=== PATIENT | female | born 1975 | race Hispanic/Latino ===

== ENCOUNTER 2017-03-14 22:01 | Inpatient (IN) | payer MEDICAID, OTHER ==
--- NOTE | 2017-03-14 22:10 | ED PDOC ---
Arrival/HPI - General Time Seen by Provider: 03/14/17 22:02 Historian: Patient - History of Present Illness Narrative History of Present Illness (Text): 03/14/17 22:09 Dede Naqvi is a 41 year old female smoker who presents to the Emergency department brought in by EMS status post witnessed seizure. Patient does not recall the incident and states she does not have a history of seizures prior to arrival. Patient denies any tongue biting or urinary incontinence. Patient denies any fever, chills, chest pain, shortness of breath, nausea, vomiting, diarrhea, urinary symptoms, back pain, neck pain, headache, dizziness, or any other complaints. Time/Duration: Prior to Arrival Symptom Onset: Sudden Symptom Course: Improving Activities at Onset: Rest, Light Context: Home Past Medical History - Provider Review Nursing Documentation Reviewed: Yes - Psychiatric Hx Depression: No Hx Emotional Abuse: No Hx Physical Abuse: No Hx Substance Use: No - Suicidal Assessment Feels Threatened In Home Enviroment: No Family/Social History - Physician Review Nursing Documentation Reviewed: Yes Family/Social History: No Known Family HX Hx Alcohol Use: Yes Hx Substance Use: No Hx Substance Use Treatment: No Allergies/Home Meds Allergies/Adverse Reactions: Allergies No Known Allergies Allergy (Verified 01/03/13 12:30) Review of Systems - Physician Review All systems were reviewed & negative as marked: Yes - Review of Systems Constitutional: Normal. absent: Fevers Eyes: Normal ENT: Normal Respiratory: Normal. absent: SOB, Cough Cardiovascular: Normal. absent: Chest Pain Gastrointestinal: Normal. absent: Abdominal Pain, Diarrhea, Nausea, Vomiting Genitourinary Female: Normal. absent: Dysuria, Frequency, Hematuria, Urine Output Changes Musculoskeletal: Normal. absent: Back Pain, Neck Pain Skin: Normal. absent: Rash Neurological: Seizure. absent: Headache, Dizziness Endocrine: Normal Hemo/Lymphatic: Normal Psychiatric: Normal Physical Exam Vital Signs Reviewed: Yes Vital Signs Temp Pulse Resp BP Pulse Ox 03/15/17 03:51 91 H 17 118/75 98 03/15/17 00:07 98 H 17 119/75 98 03/14/17 22:13 97.8 F 113 H 18 144/84 99 Temperature: Afebrile Blood Pressure: Normal Pulse: Regular Respiratory Rate: Normal Appearance: Positive for: Well-Appearing, Non-Toxic, Comfortable Pain Distress: None Mental Status: Positive for: Alert and Oriented X 3 - Systems Exam Head: Present: Atraumatic, Normocephalic, Ecchymosis (Ecchymosis under left eye) Pupils: Present: PERRL Extroacular Muscles: Present: EOMI Conjunctiva: Present: Normal Mouth: Present: Moist Mucous Membranes Neck: Present: Normal Range of Motion. No: Meningeal Signs, MIDLINE TENDERNESS , Paraspinal Tenderness Respiratory/Chest: Present: Clear to Auscultation, Good Air Exchange. No: Respiratory Distress, Accessory Muscle Use Cardiovascular: Present: Regular Rate and Rhythm, Normal S1, S2. No: Murmurs Abdomen: Present: Normal Bowel Sounds. No: Tenderness, Distention, Peritoneal Signs Back: Present: Normal Inspection. No: CVA Tenderness, Midline Tenderness, Paraspinal Tenderness Upper Extremity: Present: Normal Inspection. No: Cyanosis, Edema Lower Extremity: Present: Normal Inspection. No: Edema Neurological: Present: GCS=15, CN II-XII Intact, Speech Normal, Motor Func Grossly Intact, Normal Sensory Function, Normal Cerebellar Funct Skin: Present: Warm, Dry, Normal Color. 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 Plan: -- CT Head w/o contrast -- EKG -- Labs, cardiac enzymes, ammonia, alcogol level -- Urinalysis, urine drug screen -- Reassess and disposition Progress Notes: Reviewed EKG, sinus tachycardia at 104 bpm[address] Non-specific ST/T wave changes. 03/15/17 03:23 Reviewed radiology, CT Head shows: Brain: Mild atrophy. No intracranial hemorrhage. No mass. No definite edema. Ventricles: No hydrocephalus. Bones/joints: No acute fracture. Soft tissues: Unremarkable. Sinuses: No acute sinusitis. Mastoid air cells: No mastoid effusion. Orbits: Unremarkable as visualized. IMPRESSION: 1. No acute intracranial abnormality. 2. Incidental/non-acute findings are described above 03/15/17 03:36 On further questioning, pt states she recently stopped drinking alcohol 2 days ago. 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 Case discussed with Dr. Dasilva, who is aware and agrees with plan. Accepts pt in to hospitalist service. Pt will be admitted to the [facility] for alcohol withdrawal. - Lab Interpretations Lab Results: 03/14/17 22:20 03/14/17 22:20 Lab Results 03/14/17 23:40: Ammonia 20 03/14/17 23:30: Urine Opiates Screen Negative, Urine Methadone Screen Negative, Ur Barbiturates Screen Negative, Ur Phencyclidine Scrn Negative, Ur Amphetamines Screen Negative, U Benzodiazepines Scrn Negative, U Oth Cocaine Metabols Negative, U Cannabinoids Screen Negative 03/14/17 23:30: Urine Color Yellow, Urine Appearance Sl cloudy, Urine pH 8.5, Ur Specific [place] 1.020, Urine Protein >=300 H, Urine Glucose (UA) Negative, Urine Ketones Negative, Urine Blood Negative, Urine Nitrate Negative, Urine Bilirubin Moderate H, Urine Urobilinogen >=8.0, Ur Leukocyte Esterase Negative, Urine RBC 0 - 2, Urine WBC 0 - 2, Ur Epithelial Cells 1 - 3, Urine Bacteria Rare , Hyaline Casts 0 - 2, Fine Granular Casts 0 - 2 03/14/17 22:20: Acetaminophen < 10.0 L 03/14/17 22:20: Alcohol, Quantitative < 10 03/14/17 22:20: Sodium 129 L, Potassium 3.0 L, Chloride 87 L, Carbon Dioxide 28 , Anion Gap 17, BUN 7, Creatinine 0.6, Est GFR ( Amer) > 60, Est GFR (Non -Af Amer) > 60, Random Glucose 113 H, Calcium 8.9, Phosphorus 2.3 L, Magnesium 1.1 L, Total Bilirubin 3.0 H, AST 103 H, ALT 67 H, Alkaline Phosphatase 216 H, Lactate Dehydrogenase 407, Total Creatine Kinase 92, Troponin I < 0.01, Total Protein 8.1, Albumin 3.9, Globulin 4.3, Albumin/Globulin Ratio 0.9 L 03/14/17 22:20: WBC 5.9, RBC 4.11, Hgb 10.8 L, Hct 34.6 L, MCV 84.2, MCH 26.3, MCHC 31.2, RDW 21.0 H, Plt Count 92 L, MPV 10.6, Gran % 63.7, Lymph % (Auto) 21.7 L, Pierce % (Auto) 12.9 H, Eos % (Auto) 1.4 L, Baso % (Auto) 0.3, Gran # 3.75 , Lymph # 1.3, Pierce # 0.8 H, Eos # 0.1, Baso # 0.02 I have reviewed the lab results: Yes - RAD Interpretation Radiology Orders: 03/14/17 22:24 HEAD W/O CONTRAST [CT] Stat 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: Radiologist - EKG Interpretation Interpreted by ED Physician: Yes Type: 12 lead EKG - Medication Orders Current Medication Orders: Discontinued Medications Chlordiazepoxide (Librium) 25 mg PO STAT STA PRN Reason: Protocol Stop: 03/15/17 03:47 Last Admin: 03/15/17 04:00 Dose: 25 mg Chlordiazepoxide (Librium) 25 mg PO Q8 SHIRLEY PRN Reason: Protocol Last Admin: 03/16/17 07:01 Dose: Not Given Non-Admin Reason: Patient Asleep Sodium Chloride (Sodium Chloride 0.9%) 1,000 mls @ 80 mls/hr IV .[id number] [facility] Last Admin: 03/15/17 20:36 Dose: 80 mls/hr Multivitamins/Vitamin C 10 ml/Thiamine HCl 100 mg/ Folic Acid 1 mg/ Sodium Chloride 1,011.2 mls @ 100 mls/hr IV .[id number] ONE Stop: 03/15/17 14:06 Last Admin: 03/15/17 04:31 Dose: 100 mls/hr Potassium Chloride (Potassium Chloride 10 Meq/100 Ml) 10 meq in 100 mls @ 100 mls/hr IVPB Q2H SHIRLEY Stop: 03/15/17 07:14 Last Admin: 03/15/17 09:17 Dose: 100 mls/hr Magnesium Sulfate 2 gm/ Sodium (Chloride) 104 mls @ 102 mls/hr IVPB ONCE ONE Stop: 03/15/17 05:06 Last Admin: 03/15/17 04:31 Dose: 102 mls/hr Lorazepam (Ativan) 1 mg IVP ONCE ONE PRN Reason: Protocol Stop: 03/14/17 23:51 Last Admin: 03/15/17 00:01 Dose: 1 mg Lorazepam (Ativan) 2 mg IVP Q2H PRN; Protocol PRN Reason: Symptoms of alcohol withdrawl Nicotine (Nicoderm Cq) 1 patch TD DAILY [facility] Last Admin: 03/16/17 09:58 Dose: 1 patch Ondansetron HCl (Zofran Inj) 4 mg IVP Q6H PRN PRN Reason: Nausea/Vomiting Pantoprazole Sodium (Protonix Ec Tab) 40 mg PO ACB SHIRLEY Last Admin: 03/16/17 08:30 Dose: 40 mg Potassium Chloride (K-Dur 20 Meq Er Tab) 40 meq PO ONCE ONE Stop: 03/14/17 23:09 Last Admin: 03/14/17 23:45 Dose: 40 meq Potassium Chloride (Potassium Chloride Oral Soln) 40 meq PO STAT STA Stop: 03/15/17 04:05 Last Admin: 03/15/17 05:10 Dose: 40 meq Potassium Chloride (K-Dur 20 Meq Er Tab) 20 meq PO ONCE ONE Stop: 03/16/17 08:58 Last Admin: 03/16/17 09:59 Dose: 20 meq - Rohanibe Statement The provider has reviewed the documentation as recorded by the Annemarie Leonard All medical record entries made by the Annemarie were at my direction and personally dictated by me. I have reviewed the chart and agree that the record accurately reflects my personal performance of the history, physical exam, medical decision making, and the department course for this patient. I have also personally directed, reviewed, and agree with the discharge instructions and disposition. Disposition/Present on Arrival - Present on Arrival Any Indicators Present on Arrival: No - Disposition Have Diagnosis and Disposition been Completed?: Yes Diagnosis: Alcohol abuse, Seizure, Alcohol withdrawal seizure Disposition: HOSPITALIZED Disposition Time: 03:35 Condition: GOOD
[2017-03-14 22:40] LABS: ADD MANUAL DIFF? NO
[2017-03-14 22:49] LABS: BASO # 0.02 K/mm3 (0.0-2.0); BASO % 0.3 % (0.0-3.0); EOS # 0.1 (0.0-0.7); EOS % 1.4 % (1.5-5.0); GRAN # 3.75 (1.4-6.5); GRAN % 63.7 % (50.0-68.0); HEMATOCRIT 34.6 % (36.0-48.0); LYMPH # 1.3 (1.2-3.4); LYMPH % 21.7 % (22.0-35.0); MEAN CELL VOLUME 84.2 fL (80.0-105.0); MEAN CORPUSCULAR HEMOGLOBIN 26.3 pg (25.0-35.0); MEAN CORPUSCULAR HGB CONC 31.2 g/dl (31.0-37.0); MEAN PLATELET VOLUME 10.6 fl (7.0-11.0); MONO # 0.8 (0.1-0.6); MONO % 12.9 % (1.0-6.0); PLATELET COUNT 92 10^3/uL (120.0-450.0); WHITE BLOOD COUNT 5.9 10^3/ul (4.5-11.0)
[2017-03-14 22:54] LABS: ALB/GLOB RATIO 0.9 (1.1-1.8); ALKALINE PHOSPHATASE 216 U/L (38-133); ALT/SGPT 67 U/L (7-56); AST/SGOT 103 U/L (15-39); BLOOD UREA NITROGEN 7 mg/dL (7-21); CALCIUM 8.9 mg/dL (8.4-10.5); CARBON DIOXIDE 28 mmol/L (21-33); CHLORIDE 87 mmol/L (98-107); GFR AFRICAN-AMERICAN > 60; GLUCOSE,RANDOM 113 mg/dL (70-110); MAGNESIUM 1.1 mg/dL (1.7-2.2); PHOSPHOROUS 2.3 mg/dL (2.5-4.5); SODIUM 129 mmol/L (132-148); TOTAL PROTEIN 8.1 g/dL (5.8-8.3)
[2017-03-14 23:06] LABS: TROPONIN I < 0.01 ng/mL
[2017-03-14] MEDS ORDERED: Potassium Chloride 20 mEq ER Tab PO ONE (23:08)
[2017-03-14 23:59] LABS: PH,URINE 8.5 (4.7-8.0); URINE BILIRUBIN MODERATE (NEGATIVE); URINE BLOOD NEGATIVE (NEGATIVE); URINE GLUCOSE (UA) NEGATIVE (NEGATIVE); URINE KETONE NEGATIVE (NEGATIVE); URINE LEUKOCYTE ESTERASE NEGATIVE Leu/uL (NEGATIVE); URINE PROTEIN >=300 mg/dL (<30 mg/dL); URINE UROBILINOGEN >=8.0 E.U./dL (<1 E.U./dL)
[2017-03-15] LABS: URINE APPEARANCE SL CLOUDY (CLEAR); URINE COLOR YELLOW (YELLOW)
[2017-03-15 00:08] VITALS: O2SAT 98
[2017-03-15 00:10] LABS: URINE RBC 0 - 2 /hpf (0-2); URINE WBC 0 - 2 /hpf (0-6)
[2017-03-15 00:11] LABS: URINE BACTERIA RARE (NEG)
--- NOTE | 2017-03-15 03:06 | CT ---
EXAM: CT Head Without Intravenous Contrast CLINICAL HISTORY: 41 years old, female; Signs and symptoms; Other: Seizure TECHNIQUE: Axial computed tomography images of the head/brain without intravenous contrast. This CT exam was performed using one or more of the following dose reduction techniques: automated exposure control, adjustment of the mA and/or kV according to patient size, and/or use of iterative reconstruction technique. COMPARISON: No relevant prior studies available. FINDINGS: Brain: Mild atrophy. No intracranial hemorrhage. No mass. No definite edema. Ventricles: No hydrocephalus. Bones/joints: No acute fracture. Soft tissues: Unremarkable. Sinuses: No acute sinusitis. Mastoid air cells: No mastoid effusion. Orbits: Unremarkable as visualized. IMPRESSION: 1. No acute intracranial abnormality. 2. Incidental/non-acute findings are described above.
[2017-03-15] MEDS: Sodium Chloride 0.9% 1,000 ML IV SCH ×2 (04:00→20:36)
[2017-03-15] MEDS ORDERED: Multivitamin (MVI) 10 ML, Thiamine 100 MG, Folic Acid 1 MG in Sodium Chloride 0.9% 1,00... IV ONE (04:00)
[2017-03-15] MEDS ORDERED: Potassium Chloride 20 mEq/15 ml LIQ UD PO STA (04:04)
[2017-03-15] MEDS ORDERED: Magnesium Sulfate 2 GM in Sodium Chloride 0.9% 100 ML IVPB ONE (04:05)
--- NOTE | 2017-03-15 04:15 | CP.PCM.HP ---
<Raulito Kessler - Last Filed: 03/15/17 04:06> History of Present Illness - History of Present Illness History of Present Illness: 41 y/o F with PMH of GERD and alcohol abuse presents to the ED s/p seizure at home. Pt was at home when, according to her boyfriend, she fell down and began shaking. Pt states she does not remember any of this incident. Her boyfriend immediately called the ambulance and she was brought to the hospital. Boyfriend did not accompany pt to the hospital and all information provided about incident was relayed through EMS. Pt states she is a daily drinker and stopped drinking 3 days ago. Pt states she had tremors after stopping alcohol use, but have improved greatly over the past day. Pt mentions she has never had a seizure before in the past. Denies CP, SOB, N/V/D, fever, chills. PMH: Alcohol abuse, GERD Surgical Hx: Cholecystectomy Family Hx: Mother - DM Social Hx: 1 ppd x 28 years. 0.5-1.5 pints of liquor per day, quit 3 days ago. Denies illicit drug use. Unemployed. Allergies: NKDA Medication: Omeprazole Present on Admission - Present on Admission Any Indicators Present on Admission: No Review of Systems - Constitutional Constitutional: absent: Fatigue, Fever - EENT Eyes: absent: Blurred Vision, Change in Vision Nose/Mouth/Throat: absent: Nasal Congestion, Nasal Discharge - Cardiovascular Cardiovascular: absent: Chest Pain, Irregular Heart Rhythm - Respiratory Respiratory: Cough. absent: Dyspnea - Gastrointestinal Gastrointestinal: absent: Abdominal Pain, Diarrhea, Vomiting - Genitourinary Genitourinary: absent: Dysuria, Hematuria - Integumentary Integumentary: absent: New Lesions, Rash - Neurological Neurological: Convulsions, Syncope. absent: Numbness, Tingling - Hematologic/Lymphatic Hematologic: absent: Easy Bleeding, Easy Bruising Past Patient History - Past Social History Smoking Status: unk - PSYCHIATRIC Hx Depression: No Hx Emotional Abuse: No Hx Physical Abuse: No Hx Substance Use: No Meds Allergies/Adverse Reactions: Allergies Allergy/AdvReac Type Severity Reaction Status Date / Time No Known Allergies Allergy Verified 01/03/13 12:30 Physical Exam - Constitutional Appears: Non-toxic, No Acute Distress - Head Exam Head Exam: NORMOCEPHALIC - Eye Exam Eye Exam: EOMI, Normal appearance, PERRL Additional comments: Bruising around left eye, states from previous incident. - ENT Exam ENT Exam: Mucous Membranes Dry - Neck Exam Neck exam: Positive for: Normal Inspection. Negative for: Lymphadenopathy - Respiratory Exam Respiratory Exam: Clear to Auscultation Bilateral, NORMAL BREATHING PATTERN. absent: Rhonchi, Wheezes - Cardiovascular Exam Cardiovascular Exam: RRR, +S1, +S2 - GI/Abdominal Exam GI & Abdominal Exam: Normal Bowel Sounds, Soft. absent: Tenderness - Extremities Exam Extremities exam: Positive for: normal inspection. Negative for: calf tenderness, pedal edema - Neurological Exam Neurological exam: Alert, CN II-XII Intact, Oriented x3 Additional comments: Mildly tremulous - Psychiatric Exam Psychiatric exam: Normal Affect, Normal Mood - Skin Skin Exam: Intact, Normal Color, Warm Results - Vital Signs Recent Vital Signs: Last Vital Signs Temp 97.8 F 03/14/17 22:13 Pulse 91 H 03/15/17 03:51 Resp 03/15/17 03:51 BP 118/75 03/15/17 03:51 Pulse Ox 98 03/15/17 03:51 - Labs Result Diagrams: 03/14/17 22:20 03/14/17 22:20 Assessment & Plan - Assessment and Plan (Free Text) Plan: 41 y/o F with PMH of GERD and alcohol abuse presents with alcohol withdrawal seizure. Alcohol level at time of admission was less than 10. Pt had CT head in ED which showed no evidence of acute pathology. Pt will be admitted to telemetry. Pt will be monitored closely for any seizure like activity. 1. Alcohol withdrawal seizure Librium scheduled Ativan prn Banana Bag Seizure precautions CIWA protocol 2. GERD Protonix 3. Transaminitis Likely secondary to alcohol abuse Hepatitis panel ordered 4. Electrolyte imbalance Likely secondary to alcohol abuse Replace electrolytes as needed Recheck with AM labs 5. Alcohol/Tobacco abuse Counseled on alcohol and tobacco abstinence 6. PPX Protonix Zofran SCDs Seen, reviewed, and discussed with attending Victoria, PGY-1 <Sven Dasilva Q - Last Filed: 03/15/17 05:52> Results - Vital Signs Recent Vital Signs: Last Vital Signs Temp 97.8 F 03/14/17 22:13 Pulse 91 H 05/11/17 03:51 Resp 17 03/15/17 03:51 BP 118/75 03/15/17 03:51 Pulse Ox 98 03/15/17 03:51 - Labs Result Diagrams: 03/14/17 22:20 03/14/17 22:20 Attending/Attestation - Attestation I have personally seen and examined this patient.: Yes I have fully participated in the care of the patient.: Yes I have reviewed all pertinent clinical information: Yes
[2017-03-15] MEDS: Pantoprazole 40 mg EC Tab PO SCH (09:18)
[2017-03-15 10:02] LABS: ALB/GLOB RATIO 0.9 (1.1-1.8); ALKALINE PHOSPHATASE 204 U/L (38-133); ALT/SGPT 71 U/L (7-56); AST/SGOT 106 U/L (15-39); BILIRUBIN,TOTAL 2.8 mg/dL (0.2-1.3); BLOOD UREA NITROGEN 5 mg/dL (7-21); CALCIUM 8.8 mg/dL (8.4-10.5); CARBON DIOXIDE 25 mmol/L (21-33); CHLORIDE 95 mmol/L (98-107); GFR AFRICAN-AMERICAN > 60; GLUCOSE,RANDOM 106 mg/dL (70-110); POTASSIUM 4.1 mmol/L (3.6-5.0); SODIUM 131 mmol/L (132-148); TOTAL PROTEIN 8.2 g/dL (5.8-8.3)
[2017-03-15 10:10] VITALS: RESP 20; BMI 29.0
--- NOTE | 2017-03-15 10:43 | CARD ---
APPROVED REPORT EKG Measurement Heart [id number] [place] [id number] <Conclusion> Sinus tachycardia STTW changes c/w ischemia Prolonged QTc
--- NOTE | 2017-03-15 18:26 | CP.PCM.PN ---
Subjective - Date & Time of Evaluation Date of Evaluation: 03/15/17 Time of Evaluation: 18:20 - Subjective Subjective: Patient has very poor veins,needs iv access. Objective - Vital Signs/Intake and Output Vital Signs (last 24 hours): Temp Pulse Resp BP Pulse Ox 98.6 F 91 H 20 119/76 98 03/15/17 17:59 03/15/17 17:59 03/15/17 17:59 03/15/17 17:59 03/15/17 03:51 - Medications Medications: Current Medications Chlordiazepoxide (Librium) 25 mg PO Q8 SHIRLEY PRN Reason: Protocol Last Admin: 03/15/17 14:14 Dose: 25 mg Sodium Chloride (Sodium Chloride 0.9%) 1,000 mls @ 80 mls/hr IV .[id number] [facility] Last Admin: 03/15/17 04:00 Dose: 80 mls/hr Lorazepam (Ativan) 2 mg IVP Q2H PRN; Protocol PRN Reason: Symptoms of alcohol withdrawl Nicotine (Nicoderm Cq) 1 patch TD DAILY [facility] Last Admin: 03/15/17 17:27 Dose: 1 patch Ondansetron HCl (Zofran Inj) 4 mg IVP Q6H PRN PRN Reason: Nausea/Vomiting Pantoprazole Sodium (Protonix Ec Tab) 40 mg PO ACB [facility] Last Admin: 03/15/17 09:18 Dose: 40 mg - Labs Labs: 03/15/17 09:30 - Constitutional Appears: No Acute Distress Assessment and Plan - Assessment and Plan (Free Text) Assessment: Poor venous access Plan: Hep lock inserted R forearm. # 22 angiocath used.
--- NOTE | 2017-03-15 19:01 | CON ---
DATE: 03/15/2017 CHIEF COMPLAINT: Seizure. HISTORY OF PRESENT ILLNESS: A 41-year-old woman who has past medical history GERD has recently been binge drinking daily, 1/2 to 1-1/2 pints of liquor per day and suddenly stopped 3 days ago and starte d to have shaking and tremors and all of a sudden has been having poor sleep and not been sleeping ve ry minimally, had been depressed due to her recent loss of her job and had fell down and had been sha christa. She does not remember the incident. No history of seizures in the past, no history of trauma to the brain or meningitis. Her CT head showed no acute intracranial abnormalities. Currently she i s stable, is slightly tremulous due to alcohol withdrawal. Currently, she is walking around without any difficulty, following all commands. PAST MEDICAL HISTORY: Alcohol abuse, GERD. PAST SURGICAL HISTORY: History of cholecystectomy. FAMILY HISTORY: Mother has diabetes. SOCIAL HISTORY: Smokes 1 pack per day for 28 years, drinks 1/2 to 1-1/2 pints of liquor per day, man t 3 days ago. Denies any illicit drug use, recently unemployed. ALLERGIES: No known drug allergies. MEDICATIONS: Reviewed via nurse reconciliation sheet. REVIEW OF SYSTEMS: A 14-point review of systems is negative except the HPI. PHYSICAL EXAMINATION: VITAL SIGNS: Temperature of 98, pulse rate 95, blood pressure 130/64, respiratory rate 20, oxygen sa turation 98% on room air. GENERAL: The patient is sitting up in bed in no acute distress. HEENT: Atraumatic, normocephalic. PERRLA. Extraocular muscles intact. NECK: Supple, no JVD, no adenopathy noted. LUNGS: Clear to auscultation. No adventitious sounds. HEART: S1, S2, normal rate and rhythm. No murmurs, rubs, or gallops. ABDOMEN: Soft, nontender, nondistended. Bowel sounds are present. EXTREMITIES: No clubbing, no cyanosis. Peripheral pulses 2+ felt bilaterally. NEUROLOGIC: The patient is alert, oriented to person, place, month and year. Speech is fluent, with out any errors. Cranial nerves II through XII are intact. MOTOR: Moves all extremities equally. Toes downgoing bilaterally. SENSORY: Light touch, pinprick, proprioception, vibration intact. DTRs 2+ throughout. Romberg nega tive. GAIT: Normal. Slightly tremulous in her extremities on [id number]. LABORATORY DATA: Sodium is 131, potassium 4.4, chloride 95, carbon dioxide of 25, BUN of 5, creatini ne 0.5, random glucose of 106. Elevated AST and ALT and alkaline phosphatase. ASSESSMENT AND PLAN: This is a 41-year-old woman with past medical history of gastroesophageal reflu x disease and alcohol abuse, recently had been drinking and had stopped suddenly 3 days by herself, h ad poor sleep deprivation and had a seizure. Her CT head showed no acute intracranial abnormality. Her neuro exam is currently normal except for some mild tremors from alcohol withdrawal. She had alc ohol withdrawal seizure superimposed underlying also sleep deprivation indicating a provoked seizure as well. No need to do an MRI of the brain since her neuro exam is nonfocal and these are provoked s eizures. At this time, recommend alcohol withdrawal precautions. Librium, Ativan p.r.n., banana bags, CIWA pr otocol. Give Protonix for underlying GERD. Counseled the patient tobacco and alcohol cessation. To seek therapists for underlying mild depression that she has had from losing her job recently. Monit or electrolytes and correct accordingly. She is clinically stable from my standpoint, she can be dis charged home tomorrow and no need for any AEDs. Thank you for this consult. Harrison Cornell MD cc: [id number] TT: 03/15/2017 19:00:23 Confirmation # [id number] Dictation # [id number]
[2017-03-16 06:03] LABS: ADD MANUAL DIFF? NO
[2017-03-16 06:39] LABS: ALB/GLOB RATIO 0.9 (1.1-1.8); ALKALINE PHOSPHATASE 160 U/L (38-133); ALT/SGPT 56 U/L (7-56); AST/SGOT 84 U/L (15-39); BILIRUBIN,TOTAL 1.7 mg/dL (0.2-1.3); BLOOD UREA NITROGEN 6 mg/dL (7-21); CALCIUM 8.2 mg/dL (8.4-10.5); CARBON DIOXIDE 29 mmol/L (21-33); CHLORIDE 102 mmol/L (95-110); GFR AFRICAN-AMERICAN > 60; GLUCOSE,RANDOM 74 mg/dL (70-110); IRON 21 ug/dL (45-180); POTASSIUM 3.5 mmol/L (3.6-5.0); SODIUM 136 mmol/L (132-148); TOTAL PROTEIN 6.4 g/dL (5.8-8.3)
[2017-03-16 06:56] LABS: BASO # 0.05 K/mm3 (0.0-2.0); BASO % 1.2 % (0.0-3.0); EOS # 0.2 (0.0-0.7); EOS % 5.3 % (1.5-5.0); GRAN # 1.94 (1.4-6.5); GRAN % 47.1 % (50.0-68.0); HEMATOCRIT 32.3 % (36.0-48.0); LYMPH # 1.4 (1.2-3.4); MEAN CELL VOLUME 87.5 fL (80.0-105.0); MEAN CORPUSCULAR HGB CONC 29.7 g/dl (31.0-37.0); MEAN PLATELET VOLUME 10.5 fl (7.0-11.0); MONO # 0.5 (0.1-0.6); MONO % 12.4 % (1.0-6.0); PLATELET COUNT 96 10^3/uL (120.0-450.0); RED CELL DISTRIBUTION WIDTH 21.1 % (11.5-14.5); WHITE BLOOD COUNT 4.1 10^3/ul (4.5-11.0)
[2017-03-16 07:03] VITALS: BP 111/70; TEMP 98.3
[2017-03-16] MEDS: Pantoprazole 40 mg EC Tab PO SCH (08:30)
[2017-03-16] MEDS ORDERED: Potassium Chloride 20 mEq ER Tab PO ONE (08:57)
--- NOTE | 2017-03-16 09:55 | CP.PCM.DIS ---
<Peng Blanchard - Last Filed: 03/19/17 16:29> Provider - Provider Date of Admission: 03/15/17 03:50 Attending physician: Dylan Haider MD Primary care physician: NO PRIMARY CARE PROVIDER Time Spent in preparation of Discharge (in minutes): 35 Diagnosis - Discharge Diagnosis (1) Alcohol abuse Status: Acute (2) Seizure Status: Acute Hospital Course - Lab Results Lab Results: Most Recent Lab Values WBC 4.1 10^3/ul (4.5-11.0) L D 03/16/17 05:30 RBC 3.69 10^6/uL (3.5-6.1) 03/16/17 05:30 Hgb 9.6 gm/dL (12.0-16.0) L 03/16/17 05:30 Hct 32.3 % (36.0-48.0) L 03/16/17 05:30 MCV 87.5 fL (80.0-105.0) 03/16/17 05:30 MCH 26.0 pg (25.0-35.0) 03/16/17 05:30 MCHC 29.7 g/dl (31.0-37.0) L 03/16/17 05:30 RDW 21.1 % (11.5-14.5) H 03/16/17 05:30 Plt Count 96 10^3/uL (120.0-450.0) L 03/16/17 05:30 MPV 10.5 fl (7.0-11.0) 03/16/17 05:30 Gran % 47.1 % (50.0-68.0) L 03/16/17 05:30 Lymph % (Auto) 34.0 % (22.0-35.0) 03/16/17 05:30 Stewart % (Auto) 12.4 % (1.0-6.0) H 03/16/17 05:30 Eos % (Auto) 5.3 % (1.5-5.0) H 03/16/17 05:30 Baso % (Auto) 1.2 % (0.0-3.0) 03/16/17 05:30 Gran # 1.94 (1.4-6.5) 03/16/17 05:30 Lymph # 1.4 (1.2-3.4) 03/16/17 05:30 Stewart # 0.5 (0.1-0.6) 03/16/17 05:30 Eos # 0.2 (0.0-0.7) 03/16/17 05:30 Baso # 0.05 K/mm3 (0.0-2.0) 03/16/17 05:30 Sodium 136 mmol/L (132-148) 03/16/17 05:30 Potassium 3.5 mmol/L (3.6-5.0) L 03/16/17 05:30 Chloride 102 mmol/L (95-110) 03/16/17 05:30 Carbon Dioxide 29 mmol/L (21-33) 03/16/17 05:30 Anion Gap 9 (10-20) L 03/16/17 05:30 BUN 6 mg/dL (7-21) L 03/16/17 05:30 Creatinine 0.6 mg/dL (0.5-1.4) 03/16/17 05:30 Est GFR ( Amer) > 60 03/16/17 05:30 Est GFR (Non-Af Amer) > 60 03/16/17 05:30 Random Glucose 74 mg/dL (70-110) 03/16/17 05:30 Calcium 8.2 mg/dL (8.4-10.5) L 03/16/17 05:30 Phosphorus 2.3 mg/dL (2.5-4.5) L 03/14/17 22:20 Magnesium 1.1 mg/dL (1.7-2.2) L 03/14/17 22:20 Iron 21 ug/dL (45-180) L 03/16/17 05:30 TIBC 298 ug/dL (265-497) 03/16/17 05:30 % Saturation 7 % (20-55) L 03/16/17 05:30 Total Bilirubin 1.7 mg/dL (0.2-1.3) H 03/16/17 05:30 AST 84 U/L (15-39) H 03/16/17 05:30 ALT 56 U/L (7-56) 03/16/17 05:30 Alkaline Phosphatase 160 U/L (38-133) H 03/16/17 05:30 Ammonia 20 umol/L (9-33) 03/14/17 23:40 Lactate Dehydrogenase 407 U/L (333-699) 03/14/17 22:20 Total Creatine Kinase 92 U/L (35-230) 03/14/17 22:20 Troponin I < 0.01 ng/mL 03/14/17 22:20 Total Protein 6.4 g/dL (5.8-8.3) 03/16/17 05:30 Albumin 3.1 g/dL (3.0-4.8) 03/16/17 05:30 Globulin 3.3 gm/dL 03/16/17 05:30 Albumin/Globulin Ratio 0.9 (1.1-1.8) L 03/16/17 05:30 Urine Color Yellow (YELLOW) 03/14/17 23: Urine Appearance Sl cloudy (CLEAR) 03/14/17 23:30 Urine pH 8.5 (4.7-8.0) 03/14/17 23:30 Ur Specific Basin 1.020 (1.005-1.035) 03/14/17 23:30 Urine Protein >=300 mg/dL (<30 mg/dL) H 03/14/17 23:30 Urine Glucose (UA) Negative mg/dL (NEGATIVE) 03/14/17 23: Urine Ketones Negative mg/dL (NEGATIVE) 03/14/17 23: Urine Blood Negative (NEGATIVE) 03/14/17 23: Urine Nitrate Negative (NEGATIVE) 03/14/17 23:30 Urine Bilirubin Moderate (NEGATIVE) H 03/14/17 23:30 Urine Urobilinogen >=8.0 E.U./dL (<1 E.U./dL) 03/14/17 23:30 Ur Leukocyte Esterase Negative Angel Luis/uL (NEGATIVE) 03/14/17 23:30 Urine RBC 0 - 2 /hpf (0-2) 03/14/17 23:30 Urine WBC 0 - 2 /hpf (0-6) 03/14/17 23:30 Ur Epithelial Cells 1 - 3 /hpf (0-5) 03/14/17 23:30 Urine Bacteria Rare (NEG) 03/14/17 23:30 Hyaline Casts 0 - 2 /hpf 03/14/17 23:30 Fine Granular Casts 0 - 2 /hpf (0-2) 03/14/17 23:30 Urine Opiates Screen Negative (NEGATIVE) 03/14/17 23:30 Urine Methadone Screen Negative (NEGATIVE) 03/14/17 23:30 Acetaminophen < 10.0 ug/ml (10.0-20.0) L 03/14/17 22:20 Ur Barbiturates Screen Negative (NEGATIVE) 03/14/17 23:30 Ur Phencyclidine Scrn Negative (NEGATIVE) 03/14/17 23:30 Ur Amphetamines Screen Negative (NEGATIVE) 03/14/17 23:30 U Benzodiazepines Scrn Negative (NEGATIVE) 03/14/17 23:30 U Oth Cocaine Metabols Negative (NEGATIVE) 03/14/17 23:30 U Cannabinoids Screen Negative (NEGATIVE) 03/14/17 23:30 Alcohol, Quantitative < 10 mg/dL (0-10) 03/14/17 22:20 Hepatitis A IgM Ab Negative (NEGATIVE) 03/15/17 09:30 Hep Bs Antigen Negative (NEGATIVE) 03/15/17 09:30 Hep B Core IgM Ab Negative (NEGATIVE) 03/15/17 09:30 Hepatitis C Antibody Negative (NEGATIVE) 03/15/17 09:30 - Hospital Course Hospital Course: 41 y/o F with PMH of GERD and alcohol abuse presents to the ED s/p seizure at home. Pt was at home when, according to her boyfriend, she fell down and began shaking. Pt states she does not remember any of this incident. Her boyfriend immediately called the ambulance and she was brought to the hospital. Boyfriend did not accompany pt to the hospital and all information provided about incident was relayed through EMS. Pt states she is a daily drinker and stopped drinking 3 days ago. Pt states she had tremors after stopping alcohol use, but have improved greatly over the past day. Pt mentions she has never had a seizure before in the past. Pt had CT head in ED which showed no evidence of acute pathology. Later, she had an EEG, which was normal, with no evidence of any epileptiform activity. Pt. was counselled on effects of prolonged drinking and smoking and advised to stop. This is a brief account of her stay. For more detail please see her chart. - Date & Time of H&P Date of H&P: 03/16/17 Time of H&P: 07:00 Discharge Exam - Head Exam Head Exam: NORMOCEPHALIC - Eye Exam Eye Exam: EOMI - ENT Exam ENT Exam: Mucous Membranes Moist - Neck Exam Neck exam: Full Rom - Respiratory Exam Respiratory Exam: Clear to PA & Lateral, NORMAL BREATHING PATTERN, UNREMARKABLE - Cardiovascular Exam Cardiovascular Exam: REGULAR RHYTHM, RRR, +S1, +S2. absent: JVD - GI/Abdominal Exam GI & Abdominal Exam: Normal Bowel Sounds, Unremarkable - Extremities Exam Extremities exam: full ROM - Back Exam Back exam: absent: CVA tenderness (L), CVA tenderness (R), paraspinal tenderness - Neurological Exam Neurological exam: Alert, CN II-XII Intact, Normal Gait, Oriented x3 - Psychiatric Exam Psychiatric exam: Normal Affect, Normal Mood - Skin Skin Exam: Dry, Intact, Normal Color, Warm Discharge Plan - Follow Up Plan Condition: GOOD Disposition: HOME/ ROUTINE Instructions: Abuse of Alcohol (DC), Recurrent Seizures in Adults (DC) Additional Instructions: Pt. is medically stable for discharge. Please follow up with your primary care doctor within 1 week. You can setup an appointment at the [facility]. Please follow up with Dr. Angela Cornell, the neurologist within 1 month. Please stop smoking. Please stop drinking alcohol. Thank you for allowing us to take part in your care. Referrals: Harrison Cornell MD [Staff Provider] - PCP,NO [Primary Care Provider] - <Dylan Haider - Last Filed: 03/26/17 13:42> Provider - Provider Date of Admission: 03/15/17 03:50 Attending physician: Dylan Haider MD Primary care physician: NO PRIMARY CARE PROVIDER Hospital Course - Lab Results Lab Results: Most Recent Lab Values WBC 4.1 10^3/ul (4.5-11.0) L D 03/16/17 05:30 RBC 3.69 10^6/uL (3.5-6.1) 03/16/17 05:30 Hgb 9.6 gm/dL (12.0-16.0) L 03/16/17 05:30 Hct 32.3 % (36.0-48.0) L 03/16/17 05:30 MCV 87.5 fL (80.0-105.0) 03/16/17 05:30 MCH 26.0 pg (25.0-35.0) 03/16/17 05:30 MCHC 29.7 g/dl (31.0-37.0) L 03/16/17 05:30 RDW 21.1 % (11.5-14.5) H 03/16/17 05:30 Plt Count 96 10^3/uL (120.0-450.0) L 03/16/17 05:30 MPV 10.5 fl (7.0-11.0) 03/16/17 05:30 Gran % 47.1 % (50.0-68.0) L 03/16/17 05:30 Lymph % (Auto) 34.0 % (22.0-35.0) 03/16/17 05:30 Stewart % (Auto) 12.4 % (1.0-6.0) H 03/16/17 05:30 Eos % (Auto) 5.3 % (1.5-5.0) H 03/16/17 05:30 Baso % (Auto) 1.2 % (0.0-3.0) 03/16/17 05:30 Gran # 1.94 (1.4-6.5) 03/16/17 05:30 Lymph # 1.4 (1.2-3.4) 03/16/17 05:30 Stewart # 0.5 (0.1-0.6) 03/16/17 05:30 Eos # 0.2 (0.0-0.7) 03/16/17 05:30 Baso # 0.05 K/mm3 (0.0-2.0) 03/16/17 05:30 Sodium 136 mmol/L (132-148) 03/16/17 05:30 Potassium 3.5 mmol/L (3.6-5.0) L 03/16/17 05:30 Chloride 102 mmol/L (95-110) 03/16/17 05:30 Carbon Dioxide 29 mmol/L (21-33) 03/16/17 05:30 Anion Gap 9 (10-20) L 03/16/17 05:30 BUN 6 mg/dL (7-21) L 03/16/17 05:30 Creatinine 0.6 mg/dL (0.5-1.4) 03/16/17 05:30 Est GFR ( Amer) > 60 03/16/17 05:30 Est GFR (Non-Af Amer) > 60 03/16/17 05:30 Random Glucose 74 mg/dL (70-110) 03/16/17 05:30 Calcium 8.2 mg/dL (8.4-10.5) L 03/16/17 05:30 Phosphorus 2.3 mg/dL (2.5-4.5) L 03/14/17 22:20 Magnesium 1.1 mg/dL (1.7-2.2) L 03/14/17 22:20 Iron 21 ug/dL (45-180) L 03/16/17 05:30 TIBC 298 ug/dL (265-497) 03/16/17 05:30 % Saturation 7 % (20-55) L 03/16/17 05:30 Ferritin 43.8 ng/mL 03/16/17 05:30 Total Bilirubin 1.7 mg/dL (0.2-1.3) H 03/16/17 05:30 AST 84 U/L (15-39) H 03/16/17 05:30 ALT 56 U/L (7-56) 03/16/17 05:30 Alkaline Phosphatase 160 U/L (38-133) H 03/16/17 05:30 Ammonia 20 umol/L (9-33) 03/14/17 23:40 Lactate Dehydrogenase 407 U/L (333-699) 03/14/17 22:20 Total Creatine Kinase 92 U/L (35-230) 03/14/17 22:20 Troponin I < 0.01 ng/mL 03/14/17 22:20 Total Protein 6.4 g/dL (5.8-8.3) 03/16/17 05:30 Albumin 3.1 g/dL (3.0-4.8) 03/16/17 05:30 Globulin 3.3 gm/dL 03/16/17 05:30 Albumin/Globulin Ratio 0.9 (1.1-1.8) L 03/16/17 05:30 Vitamin B12 901 pg/mL (239-931) 03/16/17 05:30 Folate 6.2 ng/mL 03/16/17 05:30 Urine Color Yellow (YELLOW) 03/14/17 23:30 Urine Appearance Sl cloudy (CLEAR) 03/14/17 23:30 Urine pH 8.5 (4.7-8.0) 03/14/17 23:30 Ur Specific Basin 1.020 (1.005-1.035) 03/14/17 23:30 Urine Protein >=300 mg/dL (<30 mg/dL) H 03/14/17 23:30 Urine Glucose (UA) Negative mg/dL (NEGATIVE) 03/14/17 23: Urine Ketones Negative mg/dL (NEGATIVE) 03/14/17 23: Urine Blood Negative (NEGATIVE) 03/14/17 23: Urine Nitrate Negative (NEGATIVE) 03/14/17 23:30 Urine Bilirubin Moderate (NEGATIVE) H 03/14/17: Urine Urobilinogen >=8.0 E.U./dL (<1 E.U./dL) 03/14/17 23:30 Ur Leukocyte Esterase Negative Angel Luis/uL (NEGATIVE) 03/14/17 23:30 Urine RBC 0 - 2 /hpf (0-2) 03/14/17: Urine WBC 0 - 2 /hpf (0-6) 03/14/17 23:30 Ur Epithelial Cells 1 - 3 /hpf (0-5) 03/14/17 23:30 Urine Bacteria Rare (NEG) 03/14/17: Hyaline Casts 0 - 2 /hpf 03/14/17 23:30 Fine Granular Casts 0 - 2 /hpf (0-2) 03/14/17 23:30 Urine Opiates Screen Negative (NEGATIVE) 03/14/17 23:30 Urine Methadone Screen Negative (NEGATIVE) 03/14/17: Acetaminophen < 10.0 ug/ml (10.0-20.0) L 03/14/17 22:20 Ur Barbiturates Screen Negative (NEGATIVE) 03/14/17 23:30 Ur Phencyclidine Scrn Negative (NEGATIVE) 03/14/17 23:30 Ur Amphetamines Screen Negative (NEGATIVE) 03/14/17 23:30 U Benzodiazepines Scrn Negative (NEGATIVE) 03/14/17 23:30 U Oth Cocaine Metabols Negative (NEGATIVE) 03/14/17 23:30 U Cannabinoids Screen Negative (NEGATIVE) 03/14/17 23:30 Alcohol, Quantitative < 10 mg/dL (0-10) 03/14/17 22:20 Hepatitis A IgM Ab Negative (NEGATIVE) 03/15/17 09:30 Hep Bs Antigen Negative (NEGATIVE) 03/15/17 09:30 Hep B Core IgM Ab Negative (NEGATIVE) 03/15/17 09:30 Hepatitis C Antibody Negative (NEGATIVE) 03/15/17 09:30 Attending/Attestation - Attestation I have personally seen and examined this patient.: Yes I have fully participated in the care of the patient.: Yes I have reviewed all pertinent clinical information, including history, physical exam and plan: Yes Notes (Text): I have seen and examined the patient at bedside. Agree with the residents note with the following additions/ exceptions: Briefly this is 41 year old female with history of GERD and alcohol abuse who got admitted for evaluation of first time seizure most likely secondary to alcohol withdrawal syndrome along with sleep deprivation. CT head and EEG was normal. Discussed with neurologist who cleared the patient for discharge. There is no recommendation to start antiepileptics at this time. Alcohol cessation counselling provided. Dr Dylan Haider.
--- NOTE | 2017-03-16 10:21 | EEG ---
DATE: 03/15/2017 CONDITION OF RECORDING: Drowsy. DIAGNOSIS: Seizure. MEDICATIONS: Ativan, nicotine. INTERPRETATION: This is a 16-channel international recording. The background activity is composed o f 8 cycles per second. There was a small amount of beta activity of 16-20 cycles per second seen in this tracing. There was a small amount of theta activity of 5-7 cycles per second seen in this meli ng. Drowsiness is characterized mixed beta and theta activities. Sleep was characterized by vertex transient waves, sleep spindles and bilateral slowing. Photic stimulation showed no change in the tr acing. No paroxysmal activity was noted. CONCLUSION: This is a normal drowsy electroencephalogram. No evidence of any epileptiform activity. Please clinically correlate. Harrison Cornell MD cc: [phone] TT: 03/16/2017 10:20:53 Confirmation # [id number] Dictation # [id number] mn
[2017-03-16 13:02] VITALS: PULSE 113
[2017-03-16 13:19] LABS: FOLATE 6.2 ng/mL
== END 2017-03-16 11:17 | disposition home or self-care (01) | DRG 750 ==
LOC: ED 22:01 → ERH 03-15 03:50 → 2RNO 03-15 06:05
PROVIDERS: ADMIT Internal Medicine; ATTEND Hospitalist
DX: F10.239 Alcohol dependence with withdrawal, unspecified (principal); E87.8 Other disorders of electrolyte and fluid balance, not elsewhere classified; K70.10 Alcoholic hepatitis without ascites; G40.89 Other seizures; K21.9 Gastro-esophageal reflux disease without esophagitis; Y90.0 Blood alcohol level of less than 20 mg/100 ml; F17.210 Nicotine dependence, cigarettes, uncomplicated; Z90.49 Acquired absence of other specified parts of digestive tract; Z72.820 Sleep deprivation; Z83.3 Family history of diabetes mellitus

== ENCOUNTER 2017-04-30 12:09 | Emergency (ER) | payer MEDICAID ==
[2017-04-30 12:13] VITALS: BMI 43.2
--- NOTE | 2017-04-30 12:25 | ED PDOC ---
Arrival/HPI - General Chief Complaint: Seizure Time Seen by Provider: 04/30/17 12:20 Historian: Patient, EMS - History of Present Illness Narrative History of Present Illness (Text): 04/30/17 12:34 A 41 year old female, whose past medical history includes Seizure (on no medication), is brought into the emergency department via EMS status post a witness seizure. EMS states the patient was on the bus when she had a seizure. Patient reports she does not recall event but does mention a similar episode previously. She states her last drink was 4 days ago. Patient denies any tongue biting, urinary incontinence, chest pain, or other complaints at this time. PMD: None Time/Duration: Prior to Arrival Symptom Onset: Sudden Symptom Course: Other Quality: Other Activities at Onset: Rest Context: Home Past Medical History - Provider Review Nursing Documentation Reviewed: Yes - Infectious Disease Hx of Infectious Diseases: None - Cardiac Hx Cardiac Disorders: No - Pulmonary Hx Respiratory Disorders: No - Neurological Hx Seizures: Yes (new onset) - HEENT Hx HEENT Disorder: No - Renal Hx Renal Disorder: No - Endocrine/Metabolic Hx Endocrine Disorders: No - Hematological/Oncological Hx Blood Disorders: No - Integumentary Hx Dermatological Disorder: No - Musculoskeletal/Rheumatological Hx Falls: No - Gastrointestinal Hx Gastrointestinal Disorders: Yes - Genitourinary/Gynecological Hx Genitourinary Disorders: No - Psychiatric Hx Depression: No Hx Emotional Abuse: No Hx Physical Abuse: No Hx Substance Use: No - Surgical History Hx Cholecystectomy: Yes Hx Gastric Bypass Surgery: Yes - Anesthesia Hx Anesthesia: No - Suicidal Assessment Feels Threatened In Home Enviroment: No Family/Social History - Physician Review Nursing Documentation Reviewed: Yes Family/Social History: Unknown Family HX Smoking Status: Current Some Days Smoker Hx Alcohol Use: Yes Hx Substance Use: No Hx Substance Use Treatment: No Allergies/Home Meds Allergies/Adverse Reactions: Allergies No Known Allergies Allergy (Verified 01/03/13 12:30) Physical Exam - Physical Exam Narrative Physical Exam (Text): - Review of Systems Constitutional: Normal. absent: Fatigue, Weight Change, Fevers Eyes: Normal ENT: Normal Respiratory: Normal absent: SOB, Cough, Sputum Cardiovascular: Normal absent: Chest pain, Palpitations, Syncope Gastrointestinal: Normal absent: Abdominal pain, Diarrhea, Nausea, Vomiting Genitourinary: Normal. absent: Dysuria, Frequency, Hematuria Musculoskeletal: Normal. absent: Arthralgias, Back Pain, Neck Pain Skin: Normal Neurological: Seizure. absent: Focal Weakness Endocrine: Normal Hemo/Lymphatic: Normal Psychiatric: Normal - Physical exam Patient appears age appropriate, speaking full sentences without difficulty. - Systems Exam Head: Present: Atraumatic, Normocephalic Pupils: Present: PERRL Extraocular Muscles: Present: EOMI Conjunctiva: Present: Normal Mouth: Present: Moist Mucous Membranes Neck: Present: Normal Range of Motion. No: MIDLINE TENDERNESS, Paraspinal Tenderness Respiratory/Chest: Present: Clear to Auscultation, Good Air Exchange. No: Respiratory Distress, Accessory Muscle Use, Tachypneic Cardiovascular: Present: Regular Rhythm, Tachycardia, Normal S1, S2, Peripheral Pulses Present. No: Murmurs Abdomen: Present: Normal Bowel Sounds, No: Tenderness, Peritoneal Signs, Rebound, Guarding, Distention Back: Present: Normal Inspection. No: Midline Tenderness, Paraspinal Tenderness Upper Extremity: Present: Normal Inspection. No: Cyanosis, Edema Lower Extremity: Present: Normal Inspection. No: Edema Neurological: Present: GCS=15, Speech Normal, cranial nerves II through XII fully intact with no cerebellar abnormality, neuro-sensory fully intact. No focal neurological deficits. Skin: Present: Warm, Dry, Normal Color. No: Rashes Lymphatic: Present: OX3, NI, NC Psychiatric: Present: Alert, Oriented x 3, Normal Insight, Normal Concentration. Slight tremor. Head atraumatic. No nasal bone deformity or tenderness, no facial or jaw pain/ swelling. No neck midline tenderness, thoracic and lumbar spine with no midline tenderness. Pt moving b/l upper and lower extremities without difficulty, 5/5 strength, with full active and passive ROM. Distal neurovasc fully intact. Abd soft/nt/nd, no hematomas, no peritoneal signs. Neg. pelvic rock. Vital Signs Reviewed: Yes Vital Signs Temp Pulse Resp BP Pulse Ox 04/30/17 12:10 98.3 F 103 H 16 118/71 98 Temperature: Afebrile Blood Pressure: Normal Pulse: Tachycardic Respiratory Rate: Normal Appearance: Positive for: Well-Appearing, Non-Toxic, Comfortable Pain Distress: None Mental Status: Positive for: Alert and Oriented X 3 Finger Stick Blood Glucose: 98 Medical Decision Making ED Course and Treatment: 04/30/17 12:23 Impression: A 41 year old female status post witness seizure. States she has a hx of alcohol abuse and stopped drinking 4 days ago. Has been tremulous since. States she had an alcohol withdrawal seizure before. No focal neurological deficits on examination. Differential Diagnosis include but are not limited to: seizure likely secondary to alcohol withdrawal Prior Visits: Notes and results from previous visits were reviewed. Patient was admitted to the hospital on 03/15/17 for a seizure, which was likely secondary to alcohol withdrawal. Patient had a Head CT and EEG which where normal. At discharge the patient was not recommenced to take any anti-epileptic medication. Progress Notes: 04/30/17 12:44 The patient refuses admission and wishes to leave the Emergency Department against my medical advice. Patient was told that admission to the hospital is necessary and a full explanation of the reasons why was given, and understood by patient. The risks of leaving were explained and include worsening of condition, and permanent disability and from an undiagnosed or untreated condition. The patient accepts these risks, and is in my judgment is competent and capable of understanding the clinical situation and my explanation of the risks of leaving. Patient was given the opportunity to ask questions and change mind. The patient was instructed regarding the best care for the present symptoms, and to follow up with [facility] as soon as possible, or return to the Emergency Department at any time for continuing care. - Scribe Statement The provider has reviewed the documentation as recorded by the Annemarie Nicolas Provider Scribe Attestation: All medical record entries made by the Scribmarco a were at my direction and personally dictated by me. I have reviewed the chart and agree that the record accurately reflects my personal performance of the history, physical exam, medical decision making, and the department course for this patient. I have also personally directed, reviewed, and agree with the discharge instructions and disposition. Disposition/Present on Arrival - Present on Arrival Any Indicators Present on Arrival: No History of DVT/PE: No History of Uncontrolled Diabetes: No Urinary Catheter: No History of Decub. Ulcer: No History Surgical Site Infection Following: None - Disposition Have Diagnosis and Disposition been Completed?: Yes Diagnosis: Seizure Disposition: AGAINST MEDICAL ADVICE Disposition Time: 12:49 Patient Plan: Discharge Condition: FAIR Discharge Instructions (ExitCare): Alcohol Withdrawal (ED) Additional Instructions: PLEASE RETURN TO THE EMERGENCY DEPARTMENT FOR NEW OR WORSENING SYMPTOMS. RETURN RIGHT AWAY IF YOU CANNOT FOLLOW UP WITH YOUR PRIMARY CARE DOCTOR, CLINIC, OR SPECIALIST IN 1-2 DAYS. Prescriptions: chlordiazePOXIDE [Chlordiazepoxide HCl] 25 mg PO DAILY #30 cap Folic Acid 1 mg PO DAILY #14 tab Thiamine [Vitamin B1 Tab] 100 mg PO DAILY #14 tab Referrals: Mary Ge MD [Staff Provider] - [place] up with primary [facility] [place] - Follow up with primary
[2017-04-30 12:30] VITALS: BP 118/71; PULSE 103; RESP 16; TEMP 98.3; O2SAT 98
== END 2017-04-30 13:17 | disposition left against medical advice (07) ==
LOC: ED 12:09
DX: R56.9 Unspecified convulsions (principal)

== ENCOUNTER 2017-08-29 12:05 | Emergency (ER) | payer MEDICAID ==
[2017-08-29 12:06] VITALS: BMI 43.2
--- NOTE | 2017-08-29 12:23 | ED PDOC ---
Arrival/HPI - General Chief Complaint: Syncope Time Seen by Provider: 08/29/17 12:19 Historian: Patient, EMS - History of Present Illness Narrative History of Present Illness (Text): 08/29/17 12:10 Dede Naqvi is a 42 year old female, whose past medical history includes gastric bypass and seizure disorder, who is brought in to the emergency department via EMS after a possible syncopal episode according to witnesses prior to arrival. According to EMS, patient told them she has not been eating in a few days and is not on blood thinners. Patient reports for the past few days she has been having a tingling sensation at the top of her head and she remembers having blurry vision prior to her syncopal episode while walking in the street. Additionally, patient has laceration and bruising around right right eye. Patient denies any chest pain, shortness of breath, abdominal pain, nausea, vomiting, or other complaints. PMD: Dr. Bah Time/Duration: Prior to Arrival Symptom Onset: Sudden Symptom Course: Improving Activities at Onset: Light (walking ) Context: Walking, Street Associated Symptoms (Text): laceration on right eye Past Medical History - Provider Review Nursing Documentation Reviewed: Yes - Infectious Disease Hx of Infectious Diseases: None - Cardiac Hx Cardiac Disorders: No - Pulmonary Hx Respiratory Disorders: No - Neurological Hx Neurological Disorder: Yes Hx Seizures: Yes (new onset) - HEENT Hx HEENT Disorder: No - Renal Hx Renal Disorder: No - Endocrine/Metabolic Hx Endocrine Disorders: No - Hematological/Oncological Hx Blood Disorders: No - Integumentary Hx Dermatological Disorder: No - Musculoskeletal/Rheumatological Hx Falls: No - Gastrointestinal Hx Gastrointestinal Disorders: Yes Other/Comment: gastric bypass - Genitourinary/Gynecological Hx Genitourinary Disorders: No - Psychiatric Hx Depression: No Hx Emotional Abuse: No Hx Physical Abuse: No Hx Substance Use: No - Surgical History Hx Cholecystectomy: Yes Hx Gastric Bypass Surgery: Yes - Anesthesia Hx Anesthesia: Yes Hx Anesthesia Reactions: No - Suicidal Assessment Feels Threatened In Home Enviroment: No Family/Social History - Physician Review Nursing Documentation Reviewed: Yes Family/Social History: Unknown Family HX Smoking Status: Heavy Smoker > 10 Cigarettes Daily Hx Alcohol Use: Yes Frequency of alcohol use: Socially Hx Substance Use: No Hx Substance Use Treatment: No Allergies/Home Meds Allergies/Adverse Reactions: Allergies No Known Allergies Allergy (Verified 08/29/17 12:12) Home Medications: Home Meds Medication Instructions Recorded Confirmed Omeprazole [Omeprazole] 40 mg PO DAILY 08/29/17 08/29/17 Review of Systems - Review of Systems Constitutional: absent: Fevers Eyes: Vision Changes (blurry vision prior to syncopal episode) Respiratory: absent: SOB Cardiovascular: Syncope. absent: Chest Pain Gastrointestinal: absent: Abdominal Pain Skin: Laceration (right perioribital) Physical Exam Vital Signs Reviewed: Yes Vital Signs Temp Pulse Resp BP Pulse Ox 08/29/17 15:23 18 99 08/29/17 15:15 100 H 18 100 08/29/17 12:26 97.3 F L 104 H 18 142/93 H 100 Temperature: Hypothermic Blood Pressure: Hypertensive Pulse: Tachycardic Respiratory Rate: Normal Appearance: Positive for: Well-Appearing, Non-Toxic, Comfortable Pain Distress: None Mental Status: No: Alert and Oriented X 3 (alert and oriented x 2) - Systems Exam Head: Present: Atraumatic, Normocephalic, Laceration (periorbital ecchymosis and 2.5 cm superorbital laceration and 0.5 cm suborbital laceration) Pupils: Present: PERRL Extroacular Muscles: Present: EOMI Conjunctiva: Present: Normal Neck: Present: Normal Range of Motion. No: MIDLINE TENDERNESS, Paraspinal Tenderness Respiratory/Chest: Present: Clear to Auscultation, Good Air Exchange. No: Respiratory Distress, Accessory Muscle Use Cardiovascular: Present: Normal S1, S2, Tachycardic. No: Murmurs Abdomen: Present: Normal Bowel Sounds. No: Tenderness, Distention, Peritoneal Signs, Rebound, Guarding Upper Extremity: Present: Normal Inspection, Normal ROM, NORMAL PULSES, Neurovascularly Intact. No: Cyanosis, Edema, Tenderness, Swelling, Deformity Lower Extremity: Present: Normal Inspection, NORMAL PULSES, Normal ROM. No: Edema, Tenderness, Swelling, Deformity Neurological: Present: CN II-XII Intact, Speech Normal, Motor Func Grossly Intact, Normal Sensory Function, Normal 2Pt Descrimination, Other (No tremors). No: GCS=15 (GCS 14) Skin: Present: Warm, Dry, Normal Color. No: Rashes Psychiatric: Present: Alert, Normal Insight, Normal Concentration. No: Oriented x 3 (GCS 14) Medical Decision Making ED Course and Treatment: 08/29/17 Impression: 42 year old female with periorbital ecchymosis, lacerations, and tachycardia. Differential Diagnosis included but are not limited to: dehydration vs syncope vs. seizure r/o intracranial hemorrhage; less likely CVA; consider alcohol use/ withdrawal given history Plan: -- EKG -- Chest X-ray -- CT cervical spina -- CT Head -- Labs -- Tylenol and Sodium Chloride -- Urinalysis -- Reassess and disposition Progress Notes: In reviewed records, patient has been admitted for seizure disorder and ETOH withdrawls. Patient denies alcohol abuse and admits last time she drank was 3 days ago. Patient denies any substance abuse. EKG: Ordered, reviewed, and independently interpreted the EKG. Rate : 124 BPM Rhythm : sinus tachycardia Interpretation : No ST-segment elevations or depressions, no T-wave inversions, normal intervals. 08/29/17 14:32 Chest X-ray: Creator: Kelsey Witt Impression: No Active Disease Orbit CT: Creator: Kan Witt Impressions: There is soft tissue swelling anterior to the right orbit. There is also subcutaneous hemorrhage anterior to the right maxilla. Cervical Spine CT: Creator: Kan Witt Impressions: Disc degeneration at C6 - 7. No evidence of fracture. Head CT: Creator: Kan Witt Impression: No acute findings. 08/29/17 15:23 After laceration repair were completed patient did not want to stay in the ED any longer. She is now AAOx3 and not confused. She is speaking clearly. No slurred speech. She has capacity to make decisions. She was willing to complete some of the Magnesium and Potassium treatment but she wanted to leave as soon as possible. She was recommended admission but she said she could not because she has to go take care of her kids. She was explained the risks of syncope, electrolyte abnormalities and seizures. She was explained that the risks include disability and even . She was given time to think of this decision. After some time, she was asked again and she did not want to stay in the ED or admission for any further treatment. She was explained in detail the AMA form and she signed it with KATHY Goldman as my witness. She was stressed to please return to the ED for repeat blood work and reevaluation. She said she could come tomorrow. She was explained discharged instruction by me and RN Susi. - Lab Interpretations Lab Results: 08/29/17 12:13 08/29/17 12:13 Lab Results 08/29/17 13:20: Blood Type Confirm O POSITIVE 08/29/17 12:42: Blood Type O POSITIVE, Antibody Screen Negative, BBK History Checked No verified bt 08/29/17 12:42: PT 20.9 H, INR 1.88 H, APTT 34.0 08/29/17 12:13: Magnesium 0.8 L* 08/29/17 12:13: Hemoglobin A1c 4.3 08/29/17 12:13: Sodium 134, Potassium 2.5 L* D, Chloride 91 L, Carbon Dioxide 26 , Anion Gap 20, BUN 9, Creatinine 0.7, Est GFR ( Amer) > 60, Est GFR (Non -Af Amer) > 60, Random Glucose 127 H, Calcium 8.2 L, Total Bilirubin 3.3 H, AST 121 H, ALT 41, Alkaline Phosphatase 249 H, Troponin I < 0.01, Total Protein 7.5 , Albumin 3.6, Globulin 3.9, Albumin/Globulin Ratio 0.9 L, Triglycerides 110, Cholesterol 143, LDL Cholesterol Direct 70, HDL Cholesterol 57 08/29/17 12:13: WBC 8.3 D, RBC 4.18, Hgb 10.7 L, Hct 35.9 L, MCV 85.9, MCH 25.6 , MCHC 29.8 L, RDW 22.8 H, Plt Count 74 L, MPV 9.6, Gran % 80.2 H, Lymph % (Auto ) 11.6 L, Da[place]hin % (Auto) 8.0 H, Eos % (Auto) 0.0 L, Baso % (Auto) 0.2, Gran # 6.67 H, Lymph # 1.0 L, Da[place]hin # 0.7 H, Eos # 0.0, Baso # 0.02 08/29/17 12:11: POC Glucose (mg/dL) 151 H I have reviewed the lab results: Yes - RAD Interpretation Radiology Orders: 08/29/17 12:22 CHEST PORTABLE [RAD] Stat 08/29/17 12:24 ORBITS/ FACIALS W/O CONTRAST [CT] Stat 08/29/17 12:29 CERVICAL SPINE W/O CONTRAST [CT] Stat 08/29/17 13:17 HEAD W/O CONTRAST [CT] Stat Utility Service Worker: Radiologist - EKG Interpretation Interpreted by ED Physician: Yes Type: 12 lead EKG - Medication Orders Current Medication Orders: Discontinued Medications Acetaminophen (Tylenol 325mg Tab) 975 mg PO STAT STA Stop: 08/29/17 12:25 Last Admin: 08/29/17 13:05 Dose: 975 mg MAR Pain/Vitals Document 08/29/17 13:05 [email or web address] (Rec: 08/29/17 13:05 [email or web address] [id number]) Pain Reassessment Is This A Pain ReAssessment? No Sleep Is patient sleeping during reassessment? No Presence of Pain Presence of Pain Yes Pain Scale Used Pain Scale Used Numeric Location Pain Location Body Pyrotechnist Description Constant Intensity 8 Scale Used Numeric Pain Behavior Facial Grimacing Aggravating Factors Changing Position Alleviating Factors Medication Calcium/Vitamin D (Oscal-D 250 Mg-125 Units Tab) 1 tab PO STAT STA Stop: 08/29/17 14:59 Last Admin: 08/29/17 15:21 Dose: 1 tab Sodium Chloride (Sodium Chloride 0.9%) 1,000 mls @ 100 mls/hr IV .Q10H SHIRLEY Last Admin: 08/29/17 13:05 Dose: 100 mls/hr eMAR Start Stop Document 08/29/17 13:05 [email or web address] (Rec: 08/29/17 13:05 [email or web address] [id number]) Intravenous Solution Start Date 08/29/17 Start Time 13:05 End Date 08/29/17 Potassium Chloride (Potassium Chloride 20 Meq/100 Ml) 20 meq in 100 mls @ 50 mls/hr IVPB Q2H SHIRLEY Stop: 08/29/17 17:44 Last Admin: 08/29/17 14:09 Dose: 50 mls/hr eMAR Start Stop Document 08/29/17 14:09 [email or web address] (Rec: 08/29/17 14:09 [email or web address] [id number]) Intravenous Solution Start Date 08/29/17 Start Time 14:09 End Date 08/29/17 Magnesium Sulfate 2 gm/ Sodium (Chloride) 104 mls @ 102 mls/hr IVPB ONCE ONE Stop: 08/29/17 14:59 Last Admin: 08/29/17 14:21 Dose: 102 mls/hr eMAR Start Stop Document 08/29/17 14:21 [facility] (Rec: 08/29/17 14:21 [email or web address] [id number]) Intravenous Solution Start Date 08/29/17 Start Time 14:21 End Date 08/29/17 Ketorolac Tromethamine (Toradol) 30 mg IVP STAT STA Stop: 08/29/17 14:48 Last Admin: 08/29/17 15:22 Dose: Not Given Non-Admin Reason: Patient Refused Potassium Chloride (K-Dur 20 Meq Er Tab) 40 meq PO STAT STA Stop: 08/29/17 13:36 Last Admin: 08/29/17 15:21 Dose: 40 meq Tetanus/Reduced Diphtheria/Acell Pertussis (Boostrix Vaccine Inj) 0.5 ml IM .ONCE ONE Stop: 08/29/17 12:31 Last Admin: 08/29/17 15:21 Dose: 0.5 ml MAR Immunization Data Document 08/29/17 15:21 [facility] (Rec: 08/29/17 15:22 [facility] [id number]) Immunization Data Vaccine Lot Number [id number] Vaccine Expiration Date 08/18/19 Site Given Right Deltoid Route Intramuscular Immunization Units ml - Procedure PROCEDURE NOTE (Text): 08/29/17 14:52 PROCEDURE: LACERATION REPAIR Performed by the emergency provider: Dr. Rawls Location: supraorbital Length: 2.5 cm Description: clean wound edges Distal CMS: Normal. No deficits. Neurovascularly intact. Anesthesia: Lidocaine 2% without epi Preparation: The wound was cleaned with NS and Betadyne. The area was prepped and draped in the usual sterile fashion. Exploration: The wound was explored and no foreign bodies were found. Procedure: There was great approximation. In total, 6-0 Polysorb x3 subcutaneous and 5-0 Prolene x 6 externally were used. Post-Procedure: Good closure and hemostasis. Subcutaneous laceration irrigated with minimal blood loss. The patient tolerated the procedure well and there were no complications. CSM remains intact. Post procedure dressing applied. PROCEDURE: LACERATION REPAIR Performed by the emergency provider: Dr. Rawls Location: suborbital Length: 0.5 cm Description: clean wound edges Distal CMS: Normal. No deficits. Neurovascularly intact. Anesthesia: Lidocaine 2% Preparation: The wound was cleaned with NS and Betadyne. The area was prepped and draped in the usual sterile fashion. Exploration: The wound was explored and no foreign bodies were found. Procedure: There was great approximation. In total, 5-0 Prolene x 1 were used, along with 2 steri-strips Post-Procedure: Good closure and hemostasis. Irrigated with minimal blood loss. The patient tolerated the procedure well and there were no complications. CSM remains intact. Post procedure dressing applied. - Scribe Statement The provider has reviewed the documentation as recorded by the Rohanibe Norma Perez Provider Scribe Attestation: All medical record entries made by the Scribe were at my direction and personally dictated by me. I have reviewed the chart and agree that the record accurately reflects my personal performance of the history, physical exam, medical decision making, and the department course for this patient. I have also personally directed, reviewed, and agree with the discharge instructions and disposition. Disposition/Present on Arrival - Present on Arrival Any Indicators Present on Arrival: No History of DVT/PE: No History of Uncontrolled Diabetes: No Urinary Catheter: No History of Decub. Ulcer: No History Surgical Site Infection Following: None - Disposition Have Diagnosis and Disposition been Completed?: Yes Diagnosis: Syncope, Periorbital contusion, Laceration, Hypomagnesemia, Hypokalemia Disposition: AGAINST MEDICAL ADVICE Disposition Time: 15:23 Patient Plan: Discharge Condition: IMPROVED Discharge Instructions (ExitCare): Care For Your Stitches (ED), Laceration (ED) , Hypokalemia (ED), Syncope (ED), Hypocalcemia (ED), Hypomagnesemia (ED) Additional Instructions: Ms Naqvi, thank you for letting us take care of you today. Your provider was Dr. Rawls. You were treated for Syncope, Facial and Head Injury, Periorbital Ecchymosis, Hypokalemia, Hypocalcemia, Hypomagnesimia. The emergency medical care you received today was directed at your acute symptoms. If you were prescribed any medication, please fill it and take as directed. You were advised to stay in the hospital for further monitoring and care and you decided to leave against medical advise. Please return to the ED as soon as possible. You will need suture removal in 7-10days please. Please contact your doctor or call one of the physicians/clinics you have been referred to that are listed on the Patient Visit Information form that is included in your discharge packet. Bring any paperwork you were given at discharge with you along with any medications you are taking to your follow up visit. Our treatment cannot replace ongoing medical care by a primary care provider (PCP) outside of the emergency department. Thank you for allowing the [facility] team to be part of your care today. If you had an X-Ray or CT scan: A Radiologist will review the ED reading if any change in treatment is needed we will contact you. If you had a blood, urine, or wound culture: It will take several days for the results, if any change in treatment is needed we will contact you. If you had an STI test: It will take 48 hours for the results. Please call after 1 week if you have not heard back. Referrals: Gopi Lozano MD [Family Provider] - Follow up with primary Forms: [employer] (Norwegian)
[2017-08-29 12:27] VITALS: BP 142/93; RESP 18; TEMP 97.3
[2017-08-29] MEDS ORDERED: Sodium Chloride 0.9% 1,000 ML IV SCH (12:30)
[2017-08-29] MEDS ORDERED: TDAP Vaccine 0.5 mL Syr IM ONE (12:30)
[2017-08-29 12:56] LABS: BASO # 0.02 K/mm3 (0.0-2.0); BASO % 0.2 % (0.0-3.0); GRAN # 6.67 (1.4-6.5); GRAN % 80.2 % (50.0-68.0); HEMATOCRIT 35.9 % (36.0-48.0); LYMPH % 11.6 % (22.0-35.0); MEAN CELL VOLUME 85.9 fl (80.0-105.0); MEAN CORPUSCULAR HEMOGLOBIN 25.6 pg (25.0-35.0); MEAN CORPUSCULAR HGB CONC 29.8 g/dl (31.0-37.0); MEAN PLATELET VOLUME 9.6 fl (7.0-11.0); MONO # 0.7 (0.1-0.6); RED CELL DISTRIBUTION WIDTH 22.8 % (11.5-14.5); WHITE BLOOD COUNT 8.3 10^3/ul (4.5-11.0)
[2017-08-29 13:22] LABS: ALB/GLOB RATIO 0.9 (1.1-1.8); ALKALINE PHOSPHATASE 249 U/L (38-126); ALT/SGPT 41 U/L (7-56); AST/SGOT 121 U/L (14-36); BILIRUBIN,TOTAL 3.3 mg/dL (0.2-1.3); BLOOD UREA NITROGEN 9 mg/dL (7-21); CALCIUM 8.2 mg/dL (8.4-10.5); CARBON DIOXIDE 26 mmol/L (21-33); CHLORIDE 91 mmol/L (98-107); CHOLESTEROL 143 mg/dL (130-200); GFR AFRICAN-AMERICAN > 60; GLUCOSE,RANDOM 127 mg/dL (70-110); SODIUM 134 mmol/L (132-148); TOTAL PROTEIN 7.5 g/dL (5.8-8.3)
[2017-08-29 13:31] LABS: POTASSIUM 2.5 mmol/L (3.6-5.0)
[2017-08-29 13:34] LABS: TROPONIN I < 0.01 ng/mL
[2017-08-29] MEDS ORDERED: Potassium Chloride 20 mEq ER Tab PO STA (13:35)
[2017-08-29 13:39] LABS: INR 1.88 (0.93-1.08)
--- NOTE | 2017-08-29 13:50 | CT ---
PROCEDURE: CT HEAD WITHOUT CONTRAST. HISTORY: head injury r/o ICH COMPARISON: None available. TECHNIQUE: Axial computed tomography images were obtained through the head/brain without intravenous contrast. Radiation dose: Total exam DLP = 2425 mGy-cm. This CT exam was performed using one or more of the following dose reduction techniques: Automated exposure control, adjustment of the mA and/or kV according to patient size, and/or use of iterative reconstruction technique. FINDINGS: HEMORRHAGE: No intracranial hemorrhage. BRAIN: No mass effect or edema. No atrophy or chronic microvascular ischemic changes. VENTRICLES: Unremarkable. No hydrocephalus. CALVARIUM: Unremarkable. PARANASAL SINUSES: Unremarkable as visualized. No significant inflammatory changes. MASTOID AIR CELLS: Unremarkable as visualized. No inflammatory changes. OTHER FINDINGS: None. IMPRESSION: No acute findings
--- NOTE | 2017-08-29 13:57 | CT ---
PROCEDURE: CT ORBITS WITHOUT CONTRAST. HISTORY: right facial injury r/o fracture COMPARISON: None available. TECHNIQUE: Axial CT images of the orbits were obtained. Coronal and sagittal reformats were generated. Radiation dose: Total exam DLP = 529 mGy-cm. This CT exam was performed using one or more of the following dose reduction techniques: Automated exposure control, adjustment of the mA and/or kV according to patient size, and/or use of iterative reconstruction technique. FINDINGS: RIGHT ORBIT: RIGHT BONY ORBIT: Normal. RIGHT INTRAORBITAL STRUCTURES: Globe: Normal. Extraocular muscles: Normal. Post septal space: Normal. Optic Nerve: Normal. Lacrimal Apparatus: Normal. RIGHT PRESEPTAL SOFT TISSUES: There is soft tissue swelling anterior to the right orbit. There is also subcutaneous hemorrhage anterior to the right maxilla LEFT ORBIT: LEFT BONY ORBIT: Normal. LEFT INTRAORBITAL STRUCTURES: Globe: Normal. Extraocular muscles: Normal. Post septal space: Normal Optic Nerve: Normal. . Lacrimal Apparatus: Normal. LEFT PRESEPTAL SOFT TISSUES: Normal. OTHER: None. IMPRESSION: There is soft tissue swelling anterior to the right orbit. There is also subcutaneous hemorrhage anterior to the right maxilla No evidence of fracture
[2017-08-29] MEDS ORDERED: Magnesium Sulfate 2 GM in Sodium Chloride 0.9% 100 ML IVPB ONE (13:58)
--- NOTE | 2017-08-29 14:00 | CT ---
PROCEDURE: CT Cervical Spine without contrast HISTORY: Fall, rule out fracture COMPARISON: None available. TECHNIQUE: Axial computed tomography images were obtained of the cervical spine without the use of intravenous contrast. Coronal and sagittal reformatted images were created and reviewed. Radiation dose: Total exam DLP = 416 mGy-cm. This CT exam was performed using one or more of the following dose reduction techniques: Automated exposure control, adjustment of the mA and/or kV according to patient size, and/or use of iterative reconstruction technique. FINDINGS: VERTEBRAE: No fracture. Normal alignment. No destructive bony lesion. DISCS/SPINAL CANAL/NEURAL FORAMINA: No significant central canal or neural foraminal stenosis. There is disc degeneration at C6-7 PARASPINAL SOFT TISSUES: Unremarkable. OTHER FINDINGS: None. IMPRESSION: Disc degeneration at C6-7. No evidence of fracture
--- NOTE | 2017-08-29 14:12 | RAD ---
HISTORY: syncope COMPARISON: No prior. FINDINGS: LUNGS: No active pulmonary disease. PLEURA: No significant pleural effusion identified, no pneumothorax apparent. CARDIOVASCULAR: Normal. OSSEOUS STRUCTURES: No significant abnormalities. VISUALIZED UPPER ABDOMEN: Normal. OTHER FINDINGS: None. IMPRESSION: No active disease.
[2017-08-29] MEDS ORDERED: Calcium-Vit D 250 mg-125 Units Tab UD PO STA (14:58)
[2017-08-29 15:16] VITALS: PULSE 100
[2017-08-29 15:23] VITALS: O2SAT 99
--- NOTE | 2017-08-30 08:52 | CARD ---
APPROVED REPORT EKG Measurement Heart [id number] [place] [id number] [id number] <Conclusion> Sinus tachycardia STTW changes c/w ischemia Prolonged QTc No change
== END 2017-08-29 15:23 | disposition left against medical advice (07) ==
LOC: ED 12:05
DX: S01.111A Laceration without foreign body of right eyelid and periocular area, initial encounter (principal); X58.XXXA Exposure to other specified factors, initial encounter; Y93.01 Activity, walking, marching and hiking; Y92.410 Unspecified street and highway as the place of occurrence of the external cause; R55 Syncope and collapse; E83.42 Hypomagnesemia; E87.6 Hypokalemia; F17.210 Nicotine dependence, cigarettes, uncomplicated; Z98.84 Bariatric surgery status; Z23 Encounter for immunization
CPT/HCPCS: 12013; 70450; 70480; 71010; 72125; 80053; 80061; 81025; 82948; 83036; 83735; 84484; 85025; 85610; 85730; 86850; 86900; 90471; 90715; 93005; 96374; 99285; J3475; J3480; J7040

== ENCOUNTER 2017-08-30 09:16 | Emergency (ER) | payer MEDICAID ==
[2017-08-30 09:16] VITALS: BMI 43.2
[2017-08-30 09:36] VITALS: RESP 18; TEMP 98.6
[2017-08-30 10:10] LABS: BASO # 0.04 K/mm3 (0.0-2.0); BASO % 0.6 % (0.0-3.0); EOS # 0.1 (0.0-0.7); EOS % 1.3 % (1.5-5.0); GRAN # 4.94 (1.4-6.5); GRAN % 72.5 % (50.0-68.0); HEMATOCRIT 31.5 % (36.0-48.0); MEAN CELL VOLUME 87.7 fl (80.0-105.0); MEAN CORPUSCULAR HEMOGLOBIN 25.3 pg (25.0-35.0); MEAN CORPUSCULAR HGB CONC 28.9 g/dl (31.0-37.0); MEAN PLATELET VOLUME 10.2 fl (7.0-11.0); MONO # 0.7 (0.1-0.6); MONO % 10.6 % (1.0-6.0); WHITE BLOOD COUNT 6.8 10^3/ul (4.5-11.0)
[2017-08-30 10:17] LABS: ALB/GLOB RATIO 0.9 (1.1-1.8); ALKALINE PHOSPHATASE 236 U/L (38-126); ALT/SGPT 40 U/L (7-56); AST/SGOT 97 U/L (14-36); BILIRUBIN,TOTAL 2.9 mg/dL (0.2-1.3); BLOOD UREA NITROGEN 10 mg/dL (7-21); CALCIUM 8.4 mg/dL (8.4-10.5); CARBON DIOXIDE 29 mmol/L (21-33); CHLORIDE 93 mmol/L (98-107); GFR AFRICAN-AMERICAN > 60; GLUCOSE,RANDOM 91 mg/dL (70-110); MAGNESIUM 1.3 mg/dL (1.7-2.2); POTASSIUM 3.2 mmol/L (3.6-5.0); SODIUM 134 mmol/L (132-148); TOTAL PROTEIN 7.3 g/dL (5.8-8.3)
[2017-08-30 10:28] LABS: TROPONIN I < 0.01 ng/mL
[2017-08-30 10:29] LABS: INR 1.64 (0.93-1.08); PARTIAL THROMBOPLASTIN TIME 32.5 Seconds (25.1-36.5)
--- NOTE | 2017-08-30 11:07 | ED PDOC ---
Arrival/HPI - General Chief Complaint: Medical Clearance Time Seen by Provider: 08/30/17 09:26 Historian: Patient - History of Present Illness Narrative History of Present Illness (Text): 08/30/17 11:07 42-year-old female presents today for reevaluation and continuation of her treatment status post syncopal episode yesterday. Patient states she was walking down the street and started to see crystals and blacked out. Patient states when she woke up she was in the emergency room. 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 She is complaining of continued headache and right-sided facial pain. Patient denies chest pain or shortness of breath. Denies neck or back pain. Patient states she is here today because her potassium and magnesium levels were low and she needed more medications. Time/Duration: Other (yesterday) Symptom Onset: Sudden Symptom Course: Improving Past Medical History - Provider Review Nursing Documentation Reviewed: Yes - Travel History Have you recently traveled outside [place] w/in the past 3 mons?: No - Infectious Disease Hx of Infectious Diseases: None - Cardiac Hx Cardiac Disorders: No - Pulmonary Hx Respiratory Disorders: No - Neurological Hx Neurological Disorder: Yes Hx Seizures: Yes (new onset) - HEENT Hx HEENT Disorder: No - Renal Hx Renal Disorder: No - Endocrine/Metabolic Hx Endocrine Disorders: No - Hematological/Oncological Hx Blood Disorders: No - Integumentary Hx Dermatological Disorder: No - Musculoskeletal/Rheumatological Hx Falls: No - Gastrointestinal Hx Gastrointestinal Disorders: Yes Other/Comment: gastric bypass - Genitourinary/Gynecological Hx Genitourinary Disorders: No - Psychiatric Hx Psychophysiologic Disorder: No Hx Substance Use: No - Surgical History Hx Cholecystectomy: Yes Hx Gastric Bypass Surgery: Yes - Anesthesia Hx Anesthesia: Yes Hx Anesthesia Reactions: No - Suicidal Assessment Feels Threatened In Home Enviroment: No Family/Social History - Physician Review Nursing Documentation Reviewed: Yes Family/Social History: Unknown Family HX Smoking Status: Heavy Smoker > 10 Cigarettes Daily Hx Alcohol Use: Yes Frequency of alcohol use: Socially Hx Substance Use: No Hx Substance Use Treatment: No Allergies/Home Meds Allergies/Adverse Reactions: Allergies No Known Allergies Allergy (Verified 08/30/17 09:33) Home Medications: Home Meds Medication Instructions Recorded Confirmed Omeprazole [Omeprazole] 40 mg PO DAILY 08/29/17 08/30/17 Review of Systems - Review of Systems Constitutional: absent: Fatigue, Fevers Eyes: absent: Vision Changes, Photophobia, Eye Pain ENT: absent: Sore Throat Respiratory: absent: SOB, Cough Cardiovascular: absent: Chest Pain, Palpitations Gastrointestinal: absent: Abdominal Pain, Nausea, Vomiting Musculoskeletal: Arthralgias (right sided facial pain). absent: Back Pain, Neck Pain Skin: Laceration Neurological: Headache. absent: Dizziness Psychiatric: absent: Anxiety, Depression, Suicidal Ideation Physical Exam Vital Signs Reviewed: Yes Vital Signs Temp Pulse Resp BP Pulse Ox 08/30/17 13:07 90 18 128/85 98 08/30/17 11:29 89 18 122/79 100 08/30/17 09:30 98.6 F 98 H 18 104/63 100 Temperature: Afebrile Blood Pressure: Normal Pulse: Regular Respiratory Rate: Normal Appearance: Positive for: Well-Appearing, Non-Toxic, Comfortable Pain Distress: None Mental Status: Positive for: Alert and Oriented X 3 - Systems Exam Head: Present: Swelling (+ tenderness and edema and ecchymosis noted to the right forehead, periorbital region and cheek ), Ecchymosis, Laceration (to right eyebrow with sutures inplace; ) Pupils: Present: PERRL Extroacular Muscles: Present: EOMI Mouth: Present: Moist Mucous Membranes Neck: Present: Normal Range of Motion. No: MIDLINE TENDERNESS, Paraspinal Tenderness Respiratory/Chest: Present: Clear to Auscultation, Good Air Exchange. No: Respiratory Distress, Accessory Muscle Use Cardiovascular: Present: Regular Rate and Rhythm, Normal S1, S2. No: Murmurs Abdomen: No: Tenderness Back: Present: Normal Inspection Upper Extremity: Present: Normal ROM Lower Extremity: Present: Normal ROM Neurological: Present: GCS=15, Speech Normal Skin: Present: Warm, Dry Psychiatric: Present: Alert, Oriented x 3 Medical Decision Making ED Course and Treatment: 08/30/17 11:25 42yr old female with syncopal episode yesterday. presents for re-evaluation. cbc; hgb; 9.1 cmp; K; 3.2 trop; wnl ekg; NSr at 96b/m no st elevations normal axis normal intervals. ct head; FINDINGS: HEMORRHAGE: No intracranial hemorrhage. BRAIN: No acute intracranial parenchymal findings by standard CT criteria. Stable age related neuro degenerative changes are seen comprised of diffuse cerebral atrophy chronic microangiopathy. VENTRICLES: Unremarkable. No hydrocephalus. CALVARIUM: No destructive lesion or fracture identified including the skullbase. PARANASAL SINUSES: Unremarkable as visualized. No significant inflammatory changes. MASTOID AIR CELLS: Unremarkable as visualized. No inflammatory changes. OTHER FINDINGS: Diminishing right periorbital hematoma/ edema. IMPRESSION: Reiterated limited age-related neuro degenerative changes. No acute intracranial findings by standard CT criteria. Limited right periorbital hematoma/edema appears somewhat diminished. ct facial bones: FINDINGS: NASAL BONES: Minimal nondisplaced fractures of the nasal bones which may be chronic or acute. Image 52 series 2. The nose is deviated to the left ORBITS: Soft tissue swelling anterior to the right maxilla and orbit with no fracture PARANASAL SINUSES/ MASTOIDS: Clear. MAXILLA: Unremarkable. MANDIBLE/ TEMPOROMANDIBULAR JOINTS: Unremarkable. SKULL BASE: Unremarkable. TEMPORAL BONES: Middle ears and mastoid grossly unremarkable. OTHER FINDINGS: None. IMPRESSION: Soft tissue swelling anterior to the right maxilla and orbit without fracture. Minimally displaced nasal bone fractures, age uncertain pt given 40meq of potassium PO and 1g magnesium IV. pt reassessment; pt in no distress. Pt was again offered admission for syncope. pt refused. does not want to stay in the hospital for evaluation of syncope. stressed importance of f/u with neurodiagnostic tech and immediate return if she wishes to continue her care. Patient has been advised to not leave the emergency room but has decided to go AGAINST MEDICAL ADVICE. The patient possesses capacity to make decisions and has voiced understanding to all my warnings of potential worsening of the condition for which medical care was sought. I have discussed all known and potential risks and consequences to the patient leaving AGAINST MEDICAL ADVICE. Patient is leaving against medical advise. AMA form signed. witness by KATHY amezcua Discussed all results in depth with the patient. Stressed the importance of staying in the hospital. Patient again refusing admission to the hospital. I have stressed the importance of follow-up with a neurodiagnostic tech ENT specialist and poultry farmer meat regarding abnormal lab values, nasal bone fractures and syncopal episode. Patient was advised that she return at any point in time she wishes to continue her care. She was advised to return immediately if symptoms worsen persist or if new concerning symptoms develop Patient verbalizes understanding of instructions and need for immediate return and follow-up. impression; nasal bone fractures, head injury, syncope, hypomagnesemia, hypokalemia, facial laceration, anemia return if you wish to continue your care follow up with the primary care physician tomorrow follow up with the neurodiagnostic tech Follow up with the ENT specialist within the next 2 days. return in 4 days for suture removal return immediately if signs of infection develop; high fevers, increasing pain, redness, swelling or if any other concerning symptoms develop. return immediately if symptoms worsen,persist or if new symptoms develop. - Lab Interpretations Lab Results: 08/30/17 09:50 08/30/17 09:50 Lab Results 08/30/17 09:50: WBC 6.8, RBC 3.59, Hgb 9.1 L, Hct 31.5 L, MCV 87.7, MCH 25.3, MCHC 28.9 L, RDW 23.0 H, Plt Count 98 L, MPV 10.2, Gran % 72.5 H, Lymph % (Auto ) 15.0 L, Griggs % (Auto) 10.6 H, Eos % (Auto) 1.3 L, Baso % (Auto) 0.6, Gran # 4.94, Lymph # 1.0 L, Griggs # 0.7 H, Eos # 0.1, Baso # 0.04 08/30/17 09:50: Sodium 134, Potassium 3.2 L, Chloride 93 L, Carbon Dioxide 29, Anion Gap 15, BUN 10, Creatinine 0.5 L, Est GFR ( Amer) > 60, Est GFR ( Non-Af Amer) > 60, Random Glucose 91, Calcium 8.4, Magnesium 1.3 L, Total Bilirubin 2.9 H, AST 97 H, ALT 40, Alkaline Phosphatase 236 H, Lactate Dehydrogenase 359, Total Creatine Kinase 65, Troponin I < 0.01, Total Protein 7.3, Albumin 3.4, Globulin 3.8, Albumin/Globulin Ratio 0.9 L 08/30/17 09:50: PT 18.2 H, INR 1.64 H, APTT 32.5 - RAD Interpretation Radiology Orders: 08/30/17 10:34 HEAD W/O CONTRAST [CT] Stat 08/30/17 10:45 MAXILLOFACIAL W/O CONTRAST [CT] Stat - Medication Orders Current Medication Orders: Discontinued Medications Magnesium Sulfate/Dextrose (Magnesium Sulfate 1 Gm/100 Ml D5w) 1 gm in 100 mls @ 100 mls/hr IVPB ONCE ONE Stop: 08/30/17 12:07 Last Admin: 08/30/17 11:17 Dose: 100 mls/hr eMAR Start Stop Document 08/30/17 11:17 AD (Rec: 08/30/17 11:22 [place] [facility] [id number] Intravenous Solution Start Date 08/30/17 Start Time 11:22 Potassium Chloride (K-Dur 20 Meq Er Tab) 40 meq PO STAT STA Stop: 08/30/17 11:09 Last Admin: 08/30/17 11:22 Dose: 40 meq Disposition/Present on Arrival - Present on Arrival Any Indicators Present on Arrival: No History of DVT/PE: No History of Uncontrolled Diabetes: No Urinary Catheter: No History of Decub. Ulcer: No History Surgical Site Infection Following: None - Disposition Have Diagnosis and Disposition been Completed?: Yes Diagnosis: Syncope, Nasal bone fracture, Head injury, Facial laceration, Anemia, Hypomagnesemia, Hypokalemia Disposition: AGAINST MEDICAL ADVICE Disposition Time: 13:00 Patient Plan: Other (AMA) Patient Problems: Current Active Problems Problem Status Onset Anemia Acute Facial laceration Acute Head injury Acute Hypokalemia Acute Hypomagnesemia Acute Nasal bone fracture Acute Syncope Acute Condition: FAIR Discharge Instructions (ExitCare): Nasal Fracture (ED), Laceration (ED), Syncope (ED), Anemia (ED) Additional Instructions: return if you wish to continue your care follow up with the primary care physician tomorrow follow up with the neurodiagnostic tech Follow up with the ENT specialist within the next 2 days. return in 4 days for suture removal return immediately if signs of infection develop; high fevers, increasing pain, redness, swelling or if any other concerning symptoms develop. return immediately if symptoms worsen,persist or if new symptoms develop. Referrals: [facility] [place] - Follow up with primary Primitivo Barillas MD [Staff Provider] - Follow up with primary Donis Park MD [Staff Provider] - Follow up with primary Arden Gray DO [Doctor Oste[facility]] - Follow up with primary aJn Vidal MD [Staff Provider] - Follow up with primary Forms: [employer] (Pashto)
[2017-08-30] MEDS ORDERED: Magnesium Sulfate 1 gm in D5W 1 GM/100 ML BAG IVPB ONE (11:08)
[2017-08-30] MEDS ORDERED: Potassium Chloride 20 mEq ER Tab PO STA (11:08)
--- NOTE | 2017-08-30 11:29 | CT ---
PROCEDURE: CT HEAD WITHOUT CONTRAST. HISTORY: headache/head injury yesterday. COMPARISON: Unenhanced head CT 08/29/2017. TECHNIQUE: Axial computed tomography images were obtained through the head/brain without intravenous contrast. Radiation dose: Total exam DLP = 678.13 mGy-cm. This CT exam was performed using one or more of the following dose reduction techniques: Automated exposure control, adjustment of the mA and/or kV according to patient size, and/or use of iterative reconstruction technique. FINDINGS: HEMORRHAGE: No intracranial hemorrhage. BRAIN: No acute intracranial parenchymal findings by standard CT criteria. Stable age related neuro degenerative changes are seen comprised of diffuse cerebral atrophy chronic microangiopathy. VENTRICLES: Unremarkable. No hydrocephalus. CALVARIUM: No destructive lesion or fracture identified including the skullbase. PARANASAL SINUSES: Unremarkable as visualized. No significant inflammatory changes. MASTOID AIR CELLS: Unremarkable as visualized. No inflammatory changes. OTHER FINDINGS: Diminishing right periorbital hematoma/ edema. IMPRESSION: Reiterated limited age-related neuro degenerative changes. No acute intracranial findings by standard CT criteria. Limited right periorbital hematoma/edema appears somewhat diminished.
--- NOTE | 2017-08-30 11:37 | CT ---
PROCEDURE: CT MAXILLOFACIAL BONES WITHOUT CONTRAST HISTORY: right sided facial injury COMPARISON: None TECHNIQUE: Contiguous axial CT images of the maxillofacial bones were obtained. Coronal and sagittal reformats were generated. Radiation dose: Total exam DLP = 845 mGy-cm. This CT exam was performed using one or more of the following dose reduction techniques: Automated exposure control, adjustment of the mA and/or kV according to patient size, and/or use of iterative reconstruction technique. FINDINGS: NASAL BONES: Minimal nondisplaced fractures of the nasal bones which may be chronic or acute. Image 52 series 2. The nose is deviated to the left ORBITS: Soft tissue swelling anterior to the right maxilla and orbit with no fracture PARANASAL SINUSES/ MASTOIDS: Clear. MAXILLA: Unremarkable. MANDIBLE/ TEMPOROMANDIBULAR JOINTS: Unremarkable. SKULL BASE: Unremarkable. TEMPORAL BONES: Middle ears and mastoid grossly unremarkable. OTHER FINDINGS: None. IMPRESSION: Soft tissue swelling anterior to the right maxilla and orbit without fracture. Minimally displaced nasal bone fractures, age uncertain
[2017-08-30 13:08] VITALS: BP 128/85; PULSE 90; O2SAT 98
--- NOTE | 2017-08-30 14:11 | CARD ---
APPROVED REPORT EKG Measurement Heart [id number] <Conclusion> Normal sinus rhythm Normal ECG
== END 2017-08-30 13:07 | disposition left against medical advice (07) ==
LOC: ED 09:16
DX: S01.81XA Laceration without foreign body of other part of head, initial encounter (principal); S02.2XXA Fracture of nasal bones, initial encounter for closed fracture; X58.XXXA Exposure to other specified factors, initial encounter; Y93.01 Activity, walking, marching and hiking; Y92.410 Unspecified street and highway as the place of occurrence of the external cause; E83.42 Hypomagnesemia; E87.6 Hypokalemia; F17.210 Nicotine dependence, cigarettes, uncomplicated; Z98.84 Bariatric surgery status
CPT/HCPCS: 70450; 70486; 80053; 82550; 83615; 83735; 84484; 85025; 85610; 85730; 93005; 96374; 99282; J3475